=== PATIENT | female | born 1970 | race Two or more races ===

== ENCOUNTER 2024-12-05 11:13 | Emergency (ER) | payer OTHER ==
[~2024-12-05] VITALS: Ht 162.6 cm; Wt 69.9 kg
[2024-12-05] MEDS ORDERED: KEPPRA1000 MG PO (12:11)
[2024-12-05] MEDS ORDERED: HYDROCHLOROTH12.5 MG (12:12)
[2024-12-05] MEDS ORDERED: LOSARTAN-HCTZ1 EAC2 PO (12:12)
[2024-12-05] MEDS ORDERED: PLAVIX75 MG PO (12:12)
[2024-12-05] MEDS ORDERED: VAZALORE81 MG PO (12:13)
[2024-12-05] MEDS ORDERED: TOPROL XL25 M1 PO (12:13)
[2024-12-05] MEDS ORDERED: SYNTHROID125 MCG PO (12:13)
[2024-12-05] MEDS ORDERED: FAMOTIDINE/PF 20 MG in 0.9 % SODIUM CHLORIDE 8 ML IV PUSH ONE (13:00)
[2024-12-05] MEDS ORDERED: LORazepam 2 MG/ML VIAL IM ONE (13:00)
[2024-12-05] MEDS ORDERED: FAMOTIDINE/PF 20 MG/2 ML VIAL ONE (13:33)
[2024-12-05 13:57] LABS: BASO % 0.7 % (0.1-1.2); EOS # 0.12 (0.04-0.54); EOS % 1.5 % (0.7-7.0); LYMPH # 1.73 (1.18-3.74); LYMPH % 21.5 % (19.3-53.1); MEAN PLATELET VOLUME 9.40 fl (9.4-12.4); MONO # 0.52 (0.24-0.82); MONO % 6.5 % (4.7-12.5); NEUT # 5.58 (1.56-6.13); NEUT % 69.6 % (34.0-71.1); RED CELL DISTRIBUTION WIDTH 11.9 % (11.6-14.4)
[2024-12-05 14:14] LABS: ALT/SGPT 24.0 U/L (12-78); AST/SGOT 10.0 U/L (15-37); BILIRUBIN TOTAL 0.35 mg/dL (0.3-1.2); BUN CREA RATIO 17.0 (7.0-25.0); CREATININE SERUM 0.64 mg/dL (0.55-1.02); GFR 97.44; GLOBULINA 4.1 G/DL (2.4-3.5); GLUCOSE FASTING 108.0 mg/dL (65-100); OSMOLALITY SERUM 281.0 MOSM/KG (275-295)
== END 2024-12-05 15:19 | disposition home or self-care (01) ==
LOC: ER 11:13
PROVIDERS: General Practice
DX: F95.9 Tic disorder, unspecified (principal); E03.9 Hypothyroidism, unspecified; G40.909 Epilepsy, unspecified, not intractable, without status epilepticus